=== PATIENT | female | born 1990 | race Caucasian/White ===

== ENCOUNTER 2019-04-29 15:33 | Outpatient (CLI) | payer MEDICAID ==
[2019-04-29] MEDS: LACTATED RINGER'S 1,000 ML IV (17:07)
[2019-04-29] MEDS: SOD FERRIC GLUC COMPLX 125 MG in SOD CHLORIDE 0.9% 100 ML IVPB (18:27)
== END 2019-04-29 20:00 | disposition home or self-care (01) ==
LOC: OBT 15:33 → L-D 15:35 → OBT 20:00
DX: O99.012 Anemia complicating pregnancy, second trimester (principal); D55.2 Anemia due to disorders of glycolytic enzymes; O32.1XX0 Maternal care for breech presentation, not applicable or unspecified; Z3A.23 23 weeks gestation of pregnancy
CPT/HCPCS: 36415; 76815; 96360; 96361; 96367

== ENCOUNTER 2019-04-30 15:33 | Outpatient (CLI) | payer MEDICAID ==
[2019-04-30] MEDS: SOD CHLORIDE 0.9% 1,000 ML IV (16:23)
[2019-04-30] MEDS: SOD FERRIC GLUC COMPLX 125 MG in SOD CHLORIDE 0.9% 100 ML IVPB (17:22)
== END 2019-04-30 20:10 | disposition home or self-care (01) ==
LOC: OBT 15:33 → L-D 15:34 → OBT 20:10
DX: O99.012 Anemia complicating pregnancy, second trimester (principal); Z3A.23 23 weeks gestation of pregnancy
CPT/HCPCS: 96360; 96361; 96365

== ENCOUNTER 2019-05-02 15:22 | Outpatient (CLI) | payer MEDICAID ==
[2019-05-02] MEDS: LACTATED RINGER'S 1,000 ML IV (17:01)
[2019-05-02] MEDS: SOD FERRIC GLUC COMPLX 125 MG in SOD CHLORIDE 0.9% 100 ML IVPB (17:05)
== END 2019-05-02 18:25 | disposition home or self-care (01) ==
LOC: OBT 15:22 → L-D 15:22 → OBT 18:25
DX: O99.012 Anemia complicating pregnancy, second trimester (principal); D50.9 Iron deficiency anemia, unspecified; Z3A.23 23 weeks gestation of pregnancy
CPT/HCPCS: 36415; 96360; 96365

== ENCOUNTER 2019-07-24 18:29 | Inpatient (IN) | payer OTHER, MEDICAID ==
[2019-07-24 20:31] LABS: RUPTURE FETAL MEMBRANES POSITIVE (NEGATIVE)
[2019-07-24] MEDS ORDERED: MISOPROSTOL 200 MCG TAB PR (21:30)
[2019-07-24] MEDS ORDERED: OXYTOCIN 30 UNITS/LR 500 ML IV (21:30)
[2019-07-24] MEDS ORDERED: BUTORPHANOL 2 MG INJ IV (21:30)
[2019-07-24] MEDS ORDERED: CARBOPROST 250 MCG INJ IM (21:30)
[2019-07-24] MEDS ORDERED: METHYLERGONOVINE 0.2 MG INJ IM (21:30)
[2019-07-24] MEDS ORDERED: LIDOCAINE 1% (MPF) 30 ML INJ INJ (21:30)
[2019-07-24] MEDS: AMPICILLIN 2 GM/NS (PMX) 100 ML IV (22:40)
[2019-07-24] MEDS: LACTATED RINGER'S 1,000 ML IV (22:40)
[2019-07-24 23:08] LABS: ADD MAN DIFF? NO
[2019-07-24 23:13] LABS: BASOPHILS % 0.4 % (0.0-2.0); EOSINOPHILS # 0.2 10^3/ul (0.0-0.5); EOSINOPHILS % 1.8 % (0.0-7.0); HEMATOCRIT 36.6 % (37.0-47.0); HEMOGLOBIN 11.7 g/dl (12.0-16.0); LYMPHOCYTES # 2.4 10^3/ul (0.8-2.9); LYMPHOCYTES % 25.4 % (15.0-51.0); MEAN CORPUSCULAR HEMOGLOBIN 28.9 pg (29.0-33.0); MEAN CORPUSCULAR VOLUME 90.4 fl (82.0-101.0); MEAN PLATELET VOLUME 9.7 fl (7.4-10.4); MONOCYTE # 0.9 10^3/ul (0.3-0.9); MONOCYTES % 9.6 % (0.0-11.0); NEUTROPHILS % 62.3 % (39.0-77.0); PLATELET COUNT 378 10^3/UL (140-415); RED BLOOD COUNT 4.05 10^6/ul (4.20-5.40); RED CELL DISTRIBUTION WIDTH 14.5 % (11.5-14.5)
[2019-07-24 23:13] LABS: WHITE BLOOD COUNT 9.6 10^3/ul (4.8-10.8)
[2019-07-24 23:33] LABS: INR 0.92; PROTIME 12.5 Sec (11.9-14.9)
[2019-07-24 23:34] LABS: PARTIAL THROMBOPLASTIN TIME 27.6 Sec (23.0-35.0)
[2019-07-24] MEDS: BETAMET NA PHOS/AC(6 MG/ML) 2 ML INJ SYG IM (23:59)
[2019-07-25 00:02] LABS: HEPATITIS B SURFACE ANTIGEN NEGATIVE (NEGATIVE)
[2019-07-25] MEDS: OXYTOCIN 30 UNITS/LR 500 ML IV (00:07)
[2019-07-25] MEDS ORDERED: OXYTOCIN 10 UNIT INJ (01:58)
[2019-07-25] MEDS: AMPICILLIN 1 GM/NS (PMX) 50 ML IV ×6 (02:12→22:02)
[2019-07-25] MEDS: LACTATED RINGER'S 1,000 ML IV ×4 (08:29→22:52)
[2019-07-25 10:23] LABS: ADD MAN DIFF? NO
[2019-07-25 10:28] LABS: WHITE BLOOD COUNT 9.5 10^3/ul (4.8-10.8)
[2019-07-25 10:28] LABS: BASOPHILS % 0.1 % (0.0-2.0); HEMATOCRIT 37.4 % (37.0-47.0); HEMOGLOBIN 12.2 g/dl (12.0-16.0); LYMPHOCYTES # 1.3 10^3/ul (0.8-2.9); LYMPHOCYTES % 13.8 % (15.0-51.0); MEAN CORPUSCULAR HEMOGLOBIN 29.3 pg (29.0-33.0); MEAN CORPUSCULAR HGB CONC 32.6 g/dl (32.0-37.0); MEAN CORPUSCULAR VOLUME 89.7 fl (82.0-101.0); MEAN PLATELET VOLUME 9.5 fl (7.4-10.4); MONOCYTE # 0.2 10^3/ul (0.3-0.9); NEUTROPHILS % 83.7 % (39.0-77.0); PLATELET COUNT 360 10^3/UL (140-415); RED BLOOD COUNT 4.17 10^6/ul (4.20-5.40); RED CELL DISTRIBUTION WIDTH 14.4 % (11.5-14.5)
[2019-07-25 14:49] LABS: RAPID PLASMA REAGIN NONREACTIVE (NR)
[2019-07-25] MEDS: MINERAL OIL LIGHT 10 ML VIAL TOP (18:06)
[2019-07-25] MEDS ORDERED: LACTATED RINGER'S 1,000 ML IV (21:55)
[2019-07-25] MEDS ORDERED: FENTAnyl 2MCG/ML-ROPIV 0.2% 100 ML (23:25)
[2019-07-26] MEDS: BETAMET NA PHOS/AC(6 MG/ML) 2 ML INJ SYG IM (00:26)
[2019-07-26] MEDS ORDERED: TRIMETHOBENZAMIDE 100 MG/ML VIAL IM (01:00)
[2019-07-26] MEDS ORDERED: DIPHENHYDRAMINE 50 MG INJ IV ×3 (01:00→20:00)
[2019-07-26] MEDS ORDERED: KETOROLAC 30 MG INJ IV ×2 (01:00→18:00)
[2019-07-26] MEDS ORDERED: HYDROmorphONE 0.5 MG/0.5 ML SYG IV ×4 (01:00→20:00)
[2019-07-26] MEDS ORDERED: NALOXONE (0.4 MG/ML) INJ IV ×2 (01:00→20:00)
[2019-07-26] MEDS: AMPICILLIN 1 GM/NS (PMX) 50 ML IV ×5 (01:53→17:30)
[2019-07-26] MEDS: LACTATED RINGER'S 1,000 ML IV ×3 (06:41→16:54)
[2019-07-26] MEDS: FENTAnyl 2MCG/ML-ROPIV 0.2% 100 ML BAG EPI (10:26)
[2019-07-26] MEDS ORDERED: MISOPROSTOL 200 MCG TAB PR ×2 (16:00→18:00)
[2019-07-26] MEDS ORDERED: OXYTOCIN 30 UNITS/LR 500 ML IV ×4 (16:00→19:04)
[2019-07-26] MEDS ORDERED: CEFAZOLIN 2 GM/50 ML (PMX) 50 ML IVPB ×2 (16:00→18:00)
[2019-07-26] MEDS ORDERED: METHYLERGONOVINE 0.2 MG INJ IM ×2 (16:00→18:00)
[2019-07-26] MEDS ORDERED: CARBOPROST 250 MCG INJ IM ×2 (16:00→18:00)
[2019-07-26] MEDS: METOCLOPRAMIDE 10 MG INJ IV (17:17)
[2019-07-26] MEDS: CITRIC ACID/NA CITRATE 30 ML CUP PO (17:17)
[2019-07-26] MEDS: ONDANSETRON 4 MG INJ IV (17:17)
[2019-07-26] MEDS: FAMOTIDINE 20 MG INJ IV (17:41)
[2019-07-26] MEDS ORDERED: METHYLERGONOVINE 0.2 MG TAB PO (18:00)
[2019-07-26] MEDS ORDERED: NA PHOSPHATE/BIPHOS 133 ML ENEMA PR (18:00)
[2019-07-26] MEDS ORDERED: LIDOCAINE 1.5%/EPI MPF (SDV) 30 ML VIAL (18:06)
[2019-07-26] MEDS ORDERED: PHENYLephrine (100 MCG/ML) 10ML SYG (18:17)
[2019-07-26] MEDS ORDERED: morphine SULFATE/PF (10 MG/10 ML) INJ (18:35)
[2019-07-26] MEDS ORDERED: MEPERIDINE 100 MG INJ (18:57)
[2019-07-26] MEDS ORDERED: ONDANSETRON 4 MG INJ IV ×2 (19:00→20:00)
[2019-07-26] MEDS ORDERED: MEPERIDINE 25 MG INJ IV (19:00)
[2019-07-26] MEDS ORDERED: HYDROmorphONE 1 MG/5 ML IV SYRINGE IV ×3 (19:00)
[2019-07-26] MEDS ORDERED: FENTAnyl 50 MCG/ML VIAL IV (19:00)
[2019-07-26] MEDS ORDERED: PROCHLORPERAZINE 10 MG INJ IV (19:00)
[2019-07-26] MEDS: OXYTOCIN 30 UNITS/LR 500 ML IV ×2 (19:48→20:06)
[2019-07-26] MEDS: KETOROLAC 30 MG INJ IV (21:47)
[2019-07-26] MEDS: SENNA/DOCUSATE NA (8.6MG/50MG) TAB PO (22:59)
[2019-07-27] MEDS: CEFAZOLIN 2 GM/50 ML (PMX) 50 ML IVPB ×3 (01:36→17:30)
[2019-07-27] MEDS: LACTATED RINGER'S 1,000 ML IV ×4 (01:36→09:50)
[2019-07-27] MEDS: KETOROLAC 30 MG INJ IV ×2 (05:10→15:22)
[2019-07-27 08:53] LABS: ADD MAN DIFF? NO
[2019-07-27 08:56] LABS: WHITE BLOOD COUNT 14.6 10^3/ul (4.8-10.8)
[2019-07-27 08:56] LABS: ABNORMAL IP MESSAGE 1; BASOPHILS % 0.3 % (0.0-2.0); HEMATOCRIT 31.1 % (37.0-47.0); HEMOGLOBIN 10.1 g/dl (12.0-16.0); LYMPHOCYTES % 13.6 % (15.0-51.0); MEAN CORPUSCULAR HGB CONC 32.5 g/dl (32.0-37.0); MEAN CORPUSCULAR VOLUME 92.3 fl (82.0-101.0); MEAN PLATELET VOLUME 9.9 fl (7.4-10.4); MONOCYTE # 1.6 10^3/ul (0.3-0.9); MONOCYTES % 11.2 % (0.0-11.0); NEUTROPHIL # 10.9 10^3/ul (1.6-7.5); NEUTROPHILS % 74.6 % (39.0-77.0); PLATELET COUNT 309 10^3/UL (140-415); RED BLOOD COUNT 3.37 10^6/ul (4.20-5.40)
[2019-07-27 09:10] LABS: POSITIVE DIFF @See below
[2019-07-27] MEDS: SENNA/DOCUSATE NA (8.6MG/50MG) TAB PO ×2 (09:50→21:08)
[2019-07-27] MEDS: IBUPROFEN 600 MG TAB PO (21:08)
[2019-07-28] MEDS: HYDROCODONE/APAP (5/325) TAB PO ×3 (01:31→23:45)
[2019-07-28] MEDS: SENNA/DOCUSATE NA (8.6MG/50MG) TAB PO ×2 (08:14→20:54)
[2019-07-28 08:37] LABS: ADD MAN DIFF? NO
[2019-07-28 08:41] LABS: WHITE BLOOD COUNT 11.6 10^3/ul (4.8-10.8)
[2019-07-28 08:41] LABS: BASOPHIL # 0.1 10^3/ul (0.0-0.1); BASOPHILS % 0.5 % (0.0-2.0); EOSINOPHILS # 0.3 10^3/ul (0.0-0.5); EOSINOPHILS % 2.7 % (0.0-7.0); HEMATOCRIT 31.1 % (37.0-47.0); HEMOGLOBIN 9.8 g/dl (12.0-16.0); LYMPHOCYTES # 2.6 10^3/ul (0.8-2.9); LYMPHOCYTES % 22.3 % (15.0-51.0); MEAN CORPUSCULAR HEMOGLOBIN 29.3 pg (29.0-33.0); MEAN CORPUSCULAR HGB CONC 31.5 g/dl (32.0-37.0); MEAN CORPUSCULAR VOLUME 93.1 fl (82.0-101.0); MONOCYTE # 1.1 10^3/ul (0.3-0.9); MONOCYTES % 9.3 % (0.0-11.0); NEUTROPHIL # 7.5 10^3/ul (1.6-7.5); NEUTROPHILS % 64.7 % (39.0-77.0); PLATELET COUNT 341 10^3/UL (140-415); RED BLOOD COUNT 3.34 10^6/ul (4.20-5.40); RED CELL DISTRIBUTION WIDTH 13.9 % (11.5-14.5)
[2019-07-28] MEDS: LANOLIN HPA 1 PKT TOP (11:35)
[2019-07-28] MEDS: IBUPROFEN 800 MG TAB PO ×2 (13:23→22:12)
[2019-07-29] MEDS: HYDROCODONE/APAP (5/325) TAB PO ×2 (04:29→10:08)
[2019-07-29] MEDS: IBUPROFEN 800 MG TAB PO ×3 (05:47→21:35)
[2019-07-29] MEDS: MEASLES,MUMPS,RUBELLA VACCINE INJ SC* (09:00)
[2019-07-29] MEDS: DIPHTH/TET/ACEL PERTUSS (ADULT) 0.5 ML VIAL IM* (09:00)
[2019-07-29] MEDS: SENNA/DOCUSATE NA (8.6MG/50MG) TAB PO ×2 (10:08→21:35)
[2019-07-29] MEDS: BISACODYL (EC) 5 MG TAB PO (12:14)
[2019-07-30] MEDS: IBUPROFEN 800 MG TAB PO (05:29)
[2019-07-30] MEDS: SENNA/DOCUSATE NA (8.6MG/50MG) TAB PO (08:18)
[2019-07-30] MEDS: HYDROCODONE/APAP (5/325) TAB PO (08:20)
[2019-07-30] MEDS ORDERED: DIPHTH/TET/ACEL PERTUSS (ADULT) 0.5 ML VIAL IM* (09:30)
[2019-07-30] MEDS: DIPHTH/TET/ACEL PERTUSS (ADULT) 0.5 ML VIAL IM* (09:32)
[2019-07-30 09:43] LABS: ADD MAN DIFF? NO
[2019-07-30 09:50] LABS: BASOPHILS % 0.3 % (0.0-2.0); EOSINOPHILS # 0.4 10^3/ul (0.0-0.5); EOSINOPHILS % 5.7 % (0.0-7.0); HEMATOCRIT 29.5 % (37.0-47.0); HEMOGLOBIN 9.3 g/dl (12.0-16.0); LYMPHOCYTES # 2.1 10^3/ul (0.8-2.9); LYMPHOCYTES % 30.8 % (15.0-51.0); MEAN CORPUSCULAR HEMOGLOBIN 29.2 pg (29.0-33.0); MEAN CORPUSCULAR HGB CONC 31.5 g/dl (32.0-37.0); MEAN CORPUSCULAR VOLUME 92.5 fl (82.0-101.0); MEAN PLATELET VOLUME 9.6 fl (7.4-10.4); MONOCYTE # 0.5 10^3/ul (0.3-0.9); MONOCYTES % 7.5 % (0.0-11.0); NEUTROPHIL # 3.8 10^3/ul (1.6-7.5); NEUTROPHILS % 55.1 % (39.0-77.0); PLATELET COUNT 332 10^3/UL (140-415); RED BLOOD COUNT 3.19 10^6/ul (4.20-5.40); RED CELL DISTRIBUTION WIDTH 13.4 % (11.5-14.5)
[2019-07-30 09:50] LABS: WHITE BLOOD COUNT 6.8 10^3/ul (4.8-10.8)
[2019-07-30] MEDS ORDERED: LACTATED RINGER'S 1,000 ML IV (13:03)
[2019-07-30] MEDS ORDERED: KETOROLAC 30 MG INJ IV (13:30)
[2019-07-30] MEDS ORDERED: DIPHENHYDRAMINE 50 MG CAP PO (13:30)
[2019-07-30] MEDS ORDERED: ZOLPIDEM 5 MG TAB PO (13:30)
[2019-07-30] MEDS ORDERED: ONDANSETRON INJ 6 MG in DEXTROSE 5% 50 ML IVPB (13:30)
[2019-07-30] MEDS ORDERED: HYDROCODONE/APAP (5/325) TAB PO ×2 (13:30)
[2019-07-30] MEDS ORDERED: CEFAZOLIN 1 GM/50 ML (PMX) 50 ML IVPB (14:00)
[2019-07-30] MEDS ORDERED: METOCLOPRAMIDE 10 MG TAB PO (18:00)
[2019-07-30] MEDS ORDERED: ENOXAPARIN 30 MG/0.3 ML SYG SC (21:00)
== END 2019-07-30 15:15 | disposition home or self-care (01) | DRG 786 ==
LOC: OBT 18:29 → L-D 07-25 08:17 → OBT 20:45 → L-D 20:45 → PP1 07-26 22:05
PROVIDERS: Obstetrics & Gynecology
PROC: 10D00Z1 Extraction of Products of Conception, Low, Open Approach (ICD-10-PCS; principal; 2019-07-26)
DX: O34.83 Maternal care for other abnormalities of pelvic organs, third trimester (principal); N83.201 Unspecified ovarian cyst, right side; O60.13X0 Preterm labor second trimester with preterm delivery third trimester, not applicable or unspecified; Z3A.36 36 weeks gestation of pregnancy; Z37.0 Single live birth
CPT/HCPCS: 62322; 76818; 84112; 85025; 85610; 85730; 86592; 86850; 86900; 86901; 87086; 87210; 87340; 88305; 90715; 93971; 99464